=== PATIENT | male | born 1995 | race Caucasian/White ===

== ENCOUNTER 2025-08-10 16:48 | Emergency (ER) | payer SELFPAY ==
--- NOTE | ~2025-08-10 | CT_ITS ---
CLINICAL HISTORY: fall, trauma CT cervical spine without contrast Comparison: None provided Findings: Vertebral alignment is within normal limits. No significant degenerative change. No acute fractures or dislocations. Visualized intracranial contents are unremarkable. Soft tissues of the neck are normal. No consolidation or effusion at the lung apices. IMPRESSION: No acute findings. This document has been electronically signed by: Cristopher Leal MD on 08/10/2025 18:50:30
--- NOTE | ~2025-08-10 | CT_ITS ---
CLINICAL HISTORY: trauma CT lumbar spine without contrast Comparison: None provided Findings: Vertebral alignment is within normal limits. Acute, comminuted 2 column L4 compression fracture involving the anterior 2/3 columns, with moderate height loss. No significant retropulsion. Redemonstrated 3 column T12 vertebral body fracture please see prior report. Bilateral L1 transverse process fractures. Multilevel disc bulges without high-grade spinal canal narrowing. Please see same day CT abdomen pelvis report. IMPRESSION: 1. Acute, comminuted 2 column L4 compression fracture. 2. Bilateral L1 transverse process fractures. This document has been electronically signed by: Cristopher Leal MD on 08/10/2025 18:50:15
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
--- NOTE | ~2025-08-10 | CT_ITS ---
CLINICAL HISTORY: trauma CT chest with contrast Comparison: None provided Findings: The heart is normal size. The visualized thyroid and mediastinum are unremarkable. Bilateral dependent patchy consolidations. No significant pleural effusion or pneumothorax. Please see follow-up CT abdomen pelvis report. Please see prior CT thoracic spine report spinal fractures. Bilateral rib fractures, on the right involving ribs 3, 4, 5, 6, 7, 8, 9 and on the left involving 3, 4, 5, 6, 7, 9, 10, along the posterolateral aspects. IMPRESSION: 1. Bilateral rib fractures described. 2. Bilateral dependent patchy consolidations. Atelectasis, pulmonary contusions in the setting of trauma or aspiration are considered. This document has been electronically signed by: Cristopher Leal MD on 08/10/2025 18:51:24
--- NOTE | ~2025-08-10 | CT_ITS ---
CLINICAL HISTORY: trauma CT thoracic spine without contrast Comparison: None provided Findings: 3 column comminuted fracture involving the T12 vertebral body with moderate height loss and retropulsion. There is anterior avulsion of the bony fragment measuring 1 cm. Fracture extends through the spinal laminar junction and likely transverse processes bilaterally. Associated moderate to severe spinal canal narrowing at T11-T12. Paravertebral soft tissue edema. Additional chronic appearing multilevel thoracic superior endplate compression deformities with Schmorl's nodes, without evident acute fracture lines. No significant degenerative change. Bilateral nondisplaced posterior rib fractures, please see follow-up CT chest report. Bilateral 1 transverse process fractures please see follow-up CT lumbar spine. Please see same day CT chest report. IMPRESSION: Acute comminuted 3 column T12 vertebral body fracture with moderate to severe spinal canal narrowing at T11-T12. This document has been electronically signed by: Cristopher Leal MD on 08/10/2025 18:46:49
--- NOTE | ~2025-08-10 | CT_ITS ---
CLINICAL HISTORY: ct cervical CT head without contrast Comparison: None provided Findings: No intra-axial mass, midline shift, hydrocephalus, or acute hemorrhage. No significant atrophy-like change or white matter disease. The visualized paranasal sinuses and mastoid air cells are normal. The orbits are unremarkable. There is no acute fracture. Rightward nasal septal deviation with nasal perforation anteriorly IMPRESSION: 1. No acute intracranial findings. This document has been electronically signed by: Cristopher Leal MD on 08/10/2025 18:49:41
[2025-08-10 16:52] VITALS: BP 121/64; PULSE 87; RESP 22; TEMP 36.8; O2SAT 98; BMI 25.8
--- NOTE | 2025-08-10 17:03 | ECG_ITS ---
Test Reason : trauma fall Blood Pressure : */* mmHG Vent. Rate : 86 BPM Atrial Rate : 86 BPM P-R Int : 134 ms QRS Dur : 82 ms QT Int : 370 ms P-R-T Axes : 49 60 58 degrees QTcB Int : 442 ms Normal sinus rhythm Normal ECG No previous ECGs available Referred By: Martín Wei Electronically Signed By: EDU WALKER MD
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
[2025-08-10 17:15] LABS: MANUAL DIFF FLAG NO
[2025-08-10 17:17] VITALS: BP 108/70; PULSE 81; RESP 23
[2025-08-10 17:17] LABS: Hematocrit 39.2 % (42.0-52.0); Hemoglobin 13.6 g/dl (14.0-18.0); Imm Gran Abs Auto 0.12 X10*3/uL (0.00-0.03); Imm Gran Pct Auto 0.9 % (0.0-0.4); Lymphocytes Absolute Auto 1.5 X10*3/uL (1.2-4.9); Mean Corpuscular HGB Conc 34.7 g/dl (31.0-36.0); Mean Corpuscular Hemoglobin 34.4 pg (27.0-33.0); Mean Corpuscular Volume 99.2 fL (80.0-98.0); NRBC Abs Auto 0.000 X10*3/uL (0.0-0.012); NRBC Pct Auto 0.0 /100WBC (0.0-0.2); Platelet Count 265 X10*3/uL (160-400); Red Blood Count 3.95 X10*6/uL (4.60-5.80); White Blood Count 13.6 X10*3/uL (4.8-10.8)
[2025-08-10 17:36] LABS: INTERNATIONAL NORM RATIO 1.0 (0.9-1.1); Prothrombin Time 11.2 SEC (10.9-12.4)
[2025-08-10 17:41] LABS: Alanine Aminotransferase 23 U/L (0-40); Albumin Level 4.2 g/dL (3.5-5.0); Alkaline Phosphatase 59 U/L (39-117); Anion Gap 13 (12-20); Aspartate Amino Transferase 135 U/L (5-37); Blood Urea Nitrogen 8 mg/dL (9-16); Calcium 8.6 mg/dL (8.4-10.2); Carbon Dioxide 28 mmol/L (22-29); Chloride 104 mmol/L (96-108); Creatinine Clr Calc Pharmacy 109.2; Estimated Glomerular Filt Rate > 60; Lipase 17 U/L (8-78); Potassium 3.7 mmol/L (3.3-5.1); Sodium 141 mmol/L (135-145); Total Protein 6.6 g/dL (6.5-8.0)
[2025-08-10 17:42] LABS: Troponin-I High Sensitivity < 2.7 ng/L (<3.5-35.0)
[2025-08-10] MEDS: iohexoL 350 MG/ML 100 ML INFUS..BTL IV (17:49)
[2025-08-10 18:14] VITALS: BP 103/71; PULSE 90; RESP 20; TEMP 36.8; O2SAT 100
[2025-08-10 20:28] VITALS: BP 103/71; PULSE 90; RESP 20; TEMP 36.8; O2SAT 100
--- NOTE | 2025-08-10 20:28 | PC.NURSE ---
Report to Jessica ROGERS at [facility] [phone]
--- OUTSIDE RECORDS SUMMARY | 2025-08-10 21:21 | XMS_ITS | Clinical Summary ---
Author Organization [facility] Address [address] [place] [id number] Care Team Providers Care Information Security Architect Name Role Phone Unavailable Primary Care Provider Unavailabl e Social History Tobacco Use Types Packs/Day Years Used Date Smoking Tobacco: Never Assessed Sex and Gender Information Value Date Recorded Sex Assigned at Not on file Legal Sex Male 9:17 PM EDT Gender Identity Not on file Sexual Orientation Not on file Plan of Treatment Not on file
--- OUTSIDE RECORDS SUMMARY | 2025-08-10 21:21 | XMS_ITS | Referral Summary ---
Author Organization [facility] Address [address] [place] [address] Care Team Providers Care Chief Of Anesthesiology Name Role Phone Unavailable Primary Care Provider [...]
== END 2025-08-10 20:30 | disposition short-term general hospital (02) ==
PROVIDERS: Physician Assistant; Emergency Provider Emergency Medicine
DX: S22.089A Unspecified fracture of T11-T12 vertebra, initial encounter for closed fracture (principal); S32.049A Unspecified fracture of fourth lumbar vertebra, initial encounter for closed fracture; S22.43XA Multiple fractures of ribs, bilateral, initial encounter for closed fracture; S00.10XA Contusion of unspecified eyelid and periocular area, initial encounter; M54.50 Low back pain, unspecified; R40.2410 Glasgow coma scale score 13-15, unspecified time; R00.0 Tachycardia, unspecified; R20.0 Anesthesia of skin; R09.02 Hypoxemia; F10.129 Alcohol abuse with intoxication, unspecified; Y90.7 Blood alcohol level of 200-239 mg/100 ml; R51.9 Headache, unspecified; M54.2 Cervicalgia; R10.23 Pelvic and perineal pain bilateral; R07.89 Other chest pain; R11.0 Nausea; W14.XXXA Fall from tree, initial encounter; Y93.L9 Activity, other outdoor activity; Y92.9 Unspecified place or not applicable; Y99.8 Other external cause status; Z51.81 Encounter for therapeutic drug level monitoring; Z79.899 Other long term (current) drug therapy
CPT/HCPCS: 36415; 70450; 71260; 72125; 72128; 72131; 74177; 76604; 76705; 80053; 80307; 82550; 83690; 84484; 85025; 85610; 86850; 86900; 86901; 93005; 93308; 96361; 96374; 96375; 96376; 99285; J0131; J3010; Q9967

== ENCOUNTER → 2025-08-10 17:02 | Outpatient (BNV) | payer SELFPAY | PROVIDERS: Emergency Provider Emergency Medicine; Visit Provider Radiology Diagnostic Radiology | DX: S22.089A Unspecified fracture of T11-T12 vertebra, initial encounter for closed fracture (principal); S32.019A Unspecified fracture of first lumbar vertebra, initial encounter for closed fracture; S32.049A Unspecified fracture of fourth lumbar vertebra, initial encounter for closed fracture; R60.0 Localized edema; S22.43XA Multiple fractures of ribs, bilateral, initial encounter for closed fracture; J98.4 Other disorders of lung; J98.11 Atelectasis; S27.329A Contusion of lung, unspecified, initial encounter; Z04.3 Encounter for examination and observation following other accident; W19.XXXA Unspecified fall, initial encounter | CPT/HCPCS: 70450; 71260; 72125; 72128; 72131; 74177 ==

== ENCOUNTER → 2025-08-10 17:03 | Outpatient (BNV) | payer MEDICAID, SELFPAY | PROVIDERS: Emergency Provider Emergency Medicine; Visit Provider Internal Medicine Cardiovascular Disease | DX: R07.9 Chest pain, unspecified (principal); W19.XXXA Unspecified fall, initial encounter | CPT/HCPCS: 93010 ==